=== PATIENT | female | born 1985 | race Caucasian/White ===

== ENCOUNTER 2021-01-18 19:29 | Emergency (ER) | payer BC ==
[~2021-01-18] VITALS: Ht 154.9 cm; Wt 51.7 kg
[2021-01-18 19:34] VITALS: BP 132/78
--- NOTE | 2021-01-18 20:32 | NUR ---
SEEN AND EXAMINED BY YUKI
[2021-01-18 21:05] VITALS: BP 132/78
--- NOTE | 2021-01-18 21:06 | NUR ---
Patient discharged with v/s stable. Written and verbal after care instructions given and explained. Patient verbalized understanding. Ambulatory with steady gait. All questions addressed prior to discharge. Advised to follow up with PMD.
== END 2021-01-18 21:05 | disposition home or self-care (01) ==
LOC: MED 19:29
DX: S13.4XXA Sprain of ligaments of cervical spine, initial encounter (principal); S80.11XA Contusion of right lower leg, initial encounter; S20.312A Abrasion of left front wall of thorax, initial encounter; V89.2XXA Person injured in unspecified motor-vehicle accident, traffic, initial encounter; Y93.89 Activity, other specified; Y92.411 Interstate highway as the place of occurrence of the external cause; Y99.8 Other external cause status
CPT/HCPCS: 73610; 99283